=== PATIENT | female | born 1970 | race Caucasian/White ===

== ENCOUNTER 2018-04-16 14:28 | Outpatient (CLI) | payer OTHER ==
--- NOTE | 2018-04-16 15:33 | MRI ---
MRI CERVICAL SPINE: History: 48-year-old with history of cervical radiculopathy. M54.12. Technique: Multiplanar, multisequence noncontrast enhanced MR images cervical spine obtained. Comparison: 12-21-15 FINDINGS: Images demonstrate the spinal cord to be unremarkable with no evidence of cord masses or lesions. C1-2: Unremarkable. C2-3: Unremarkable. C3-4: There is a minimal central disc protrusion compressing the thecal sac, not significantly compre ssing the spinal cord. The neural foramen are patent. C4-5: No evidence of disc herniation or spinal stenosis or neural foraminal narrowing is seen. C5-6: Unremarkable. C6-7: Unremarkable. C7-T1: Unremarkable. IMPRESSION: Minimal C2-3 disc protrusion and C3-4 disc protrusions. No significant evidence of thecal sac alvarez maricel or neural foraminal narrowing is seen. POS: [facility]
== END 2018-04-16 14:29 | disposition home or self-care (01) ==
LOC: SCSMRI 14:28
PROVIDERS: ATTEND Specialist
DX: M50.11 Cervical disc disorder with radiculopathy, high cervical region (principal)
CPT/HCPCS: 72141

== ENCOUNTER 2020-05-14 14:53 | Observation (INO) | payer OTHER ==
[2020-05-14] MEDS ORDERED: Acetaminophen 325 MG TAB PO PRN (15:51)
[2020-05-14] MEDS ORDERED: Senokot S 8.6-50 MG TAB PO PRN (15:51)
[2020-05-14 15:54] LABS: #Basophils 0.2 thou/uL (0.0-0.2); #Eosinphils 0.2 thou/uL (0.0-0.7); #Lymphocytes 3.7 thou/uL (1.20-3.40); #Neutrophils 8.9 thou/uL (1.40-6.50); %Basophils 1.2 % (0.0-1.0); %Eosinophils 1.5 % (0.0-10.0); %Lymphocytes 26.8 % (21.0-51.0); %Monocytes 7.1 % (0.0-10.0); %Neutrophils 63.4 % (42.0-75.0); Hemoglobin 15.5 g/dL (12.0-16.0); Mean Corpuscular Hemoglobin 30.4 pg (27.0-31.0); Mean Corpuscular Volume 89.5 fL (78.0-98.0); Mean Platelet Volume 6.7 fL (7.4-10.4); Platelet Count 354 thou/uL (130-400); RBC Distribution Width 12.7 % (11.5-14.5); Red Blood Cell (RBC) Count 5.11 mill/uL (4.20-5.40)
[2020-05-14 16:16] LABS: ALT (SGPT) 27 U/L (8-55); AST (SGOT) 26 U/L (5-34); Alkaline Phosphatase 157 U/L (40-110); Anion Gap 16 mmol/L (10-20); BUN (Urea Nitrogen) 9 mg/dL (9.8-20.1); Bilirubin, Total 0.4 mg/dL (0.2-1.2); CK (CPK) 86 U/L (29-168); Calc. Creatinine Clearance 0 mL/min (70-130); Calcium 9.1 mg/dL (7.8-10.44); Carbon Dioxide 22 mmol/L (22-29); Chloride 104 mmol/L (98-107); Globulin 3.3 g/dL (2.4-3.5); Glucose 95 mg/dL (70-105); Protein, Total 7.3 g/dL (6.0-8.3); Sodium 138 mmol/L (136-145)
[2020-05-14 16:17] LABS: Acetaminophen Less than 6.0 mcg/mL (10.0-30.0); Alcohol Less than 10 mg/dL (Less than 10); Lipase 34 U/L (8-78); Salicylate Less than 8.0 mg/dL (15.0-30.0)
[2020-05-14 16:37] LABS: Troponin I 0.044 ng/mL (< 0.028)
--- NOTE | 2020-05-14 16:43 | PDOC.HHP ---
Hospitalist KENRICK Tunnel vision/elevated troponin History of Present Illness: 50F presents to the ED from [facility] after being evaluated there for sudden onset vision changes, numbness/tingling to right hand when sitting down to chart today. 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 She reports a history of migraine headaches which can include floaters in her right eye with her right side of her nose becoming numb. She reports an increase in headache frequency and states she has them every day... has a nasal spray and takes Motrin and they resolve typically. Her Brain CT and CTA in [place] were negative for acute processes. She reports all of her symptoms have resolved now and she feels generally better. She has new prescriptive lens within the last 2 months and believed her vision is not much better with them on. She is going to be admitted here for further evaluation. ED Course: WBC = 14 BUN/CR 9/0.83 Troponin 0.044 x2, otherwise unremarkable. Allergies/Adverse Reactions: Allergy/AdvReac Type Severity Reaction Status Date / Time No Known Drug Allergies Allergy Verified 02/16/16 12:45 Home Medications: Medication Instructions Recorded Confirmed Type Escitalopram Oxalate [Lexapro] 20 mg PO DAILY 02/16/16 02/16/16 History Esomeprazole Magnesium [NexIUM 40 mg PO DAILY 02/16/16 02/16/16 History Oral Suspension] HYDROcodone Bit/APAP 10/325 [[place] 2 tab PO Q6HR PRN 02/16/16 02/16/16 History 10/325] OXcarbazepine [Trileptal] 300 mg PO BID 02/16/16 02/16/16 History Ondansetron HCl [Zofran] 8 mg PO TID PRN 02/16/16 02/16/16 History Prednisone [predniSONE 10 mg 10 mg PO ASDIR 02/16/16 02/16/16 History Dosepak] clonazePAM 0.5 mg PO BID PRN 02/16/16 02/16/16 History traMADol HCl [Tramadol HCl] 100 mg PO TID PRN 02/16/16 02/16/16 History Past History: PMHx: PSHx: FHx: Social: Hospitalist KENRICK ROS Eyes: reports: vision change ENT: denies: ear pain, ear discharge, nose pain, nose discharge, nose congestion, mouth pain, mouth swelling, throat pain, throat swelling, other Respiratory: denies: cough, dry, shortness of breath, hemoptysis, SOB with excertion, pleuritic pain, sputum, wheezing, other Cardiovascular: denies: chest pain, palpitations, orthopnea, paroxysmal noc. dyspnea, edema, light headedness, other Gastrointestinal: denies: nausea, vomiting, abdominal pain, diarrhea, constipation, melena, hematochezia, other Genitourinary: denies: dysuria, frequency, incontinence, hematuria, retention, other Musculoskeletal: denies: neck pain, shoulder pain, arm pain, back pain, hand pain, leg pain, foot pain, other Skin: denies: rash, lesions, tona, bruising, other Neurological: reports: numbness (right arm/hand; resolved) Hospitalist Exam General Appearance: NAD, awake alert Eye: PERRL, anicteric sclera ENT: normocephalic atraumatic, moist mucosa Neck: supple, no lymphadenopathy Heart: RRR, normal peripheral pulses Respiratory: CTAB, normal chest expansion Gastrointestinal: soft, non-tender, normal bowel sounds Extremities: no edema Skin: normal turgor Neurological: cranial nerve grossly intact Musculoskeletal: normal tone, normal strength Psychiatric: normal affect, A&O x 3 Hospitalist Results Result Diagrams: 05/14/20 15:43 05/14/20 15:43 Lab results: Laboratory Last Values WBC 14.0 thou/uL (4.8-10.8) H 05/14/20 15:43 RBC 5.11 mill/uL (4.20-5.40) 05/14/20 15:43 Hgb 15.5 g/dL (12.0-16.0) 05/14/20 15:43 Hct 45.7 % (36.0-47.0) 05/14/20 15:43 MCV 89.5 fL (78.0-98.0) 05/14/20 15:43 MCH 30.4 pg (27.0-31.0) 05/14/20 15:43 MCHC 34.0 g/dL (32.0-36.0) 05/14/20 15:43 RDW 12.7 % (11.5-14.5) 05/14/20 15:43 Plt Count 354 thou/uL (130-400) 05/14/20 15:43 MPV 6.7 fL (7.4-10.4) L 05/14/20 15:43 Neutrophils % 63.4 % (42.0-75.0) 05/14/20 15:43 Lymphocytes % 26.8 % (21.0-51.0) 05/14/20 15:43 Monocytes % 7.1 % (0.0-10.0) 05/14/20 15:43 Eosinophils % 1.5 % (0.0-10.0) 05/14/20 15:43 Basophils % 1.2 % (0.0-1.0) H 05/14/20 15:43 Neutrophils # 8.9 thou/uL (1.40-6.50) H 05/14/20 15:43 Lymphocytes # 3.7 thou/uL (1.20-3.40) H 05/14/20 15:43 Monocytes # 1.0 thou/uL (0.11-0.59) H 05/14/20 15:43 Eosinophils # 0.2 thou/uL (0.0-0.7) 05/14/20 15:43 Basophils # 0.2 thou/uL (0.0-0.2) 05/14/20 15:43 Sodium 138 mmol/L (136-145) 05/14/20 15:43 Potassium 4.0 mmol/L (3.5-5.1) 05/14/20 15:43 Chloride 104 mmol/L (98-107) 05/14/20 15:43 Carbon Dioxide 22 mmol/L (22-29) 05/14/20 15:43 Anion Gap 16 mmol/L (10-20) 05/14/20 15:43 BUN 9 mg/dL (9.8-20.1) L 05/14/20 15:43 Creatinine 0.83 mg/dL (0.6-1.1) 05/14/20 15:43 Estimated GFR (MDRD) 72 05/14/20 15:43 Glucose 95 mg/dL (70-105) 05/14/20 15:43 Calcium 9.1 mg/dL (7.8-10.44) 05/14/20 15:43 Total Bilirubin 0.4 mg/dL (0.2-1.2) 05/14/20 15:43 AST 26 U/L (5-34) 05/14/20 15:43 ALT 27 U/L (8-55) 05/14/20 15:43 Alkaline Phosphatase 157 U/L (40-110) H 05/14/20 15:43 Creatine Kinase 86 U/L (29-168) 05/14/20 15:43 Serum Total Protein 7.3 g/dL (6.0-8.3) 05/14/20 15:43 Albumin 4.0 g/dL (3.5-5.0) 05/14/20 15:43 Globulin 3.3 g/dL (2.4-3.5) 05/14/20 15:43 Albumin/Globulin Ratio 1.2 g/dL (1.2-2.2) 05/14/20 15:43 Lipase 34 U/L (8-78) 05/14/20 15:43 Salicylates Less than 8.0 mg/dL (15.0-30.0) L 05/14/20 15:43 Acetaminophen Less than 6.0 mcg/mL (10.0-30.0) L 05/14/20 15:43 Plasma Alcohol Less than 10 mg/dL (Less than 10) 05/14/20 15:43 CT scan - head Status: report reviewed by me (No acute findings) Hospitalist H&P A/P (1) Migraine Code(s): G43.909 - MIGRAINE, UNSP, NOT INTRACTABLE, WITHOUT STATUS MIGRAINOSUS Status: Acute (2) Hypertension Code(s): I10 - ESSENTIAL (PRIMARY) HYPERTENSION Status: Chronic (3) Cervicalgia Code(s): M54.2 - CERVICALGIA Status: Chronic (4) Change in vision Code(s): H53.9 - UNSPECIFIED VISUAL DISTURBANCE Status: Acute (5) Leukocytosis Code(s): D72.829 - ELEVATED WHITE BLOOD CELL COUNT, UNSPECIFIED Status: Acute (6) Elevated troponin Code(s): R77.8 - OTHER SPECIFIED ABNORMALITIES OF PLASMA PROTEINS Status: Acute Plan: #TIA vs Migraine Echo and MRI brain w/o contrast Fasting lipids; TSH pending PT/OT/Speech/Neurology consult Aspirin and Statin ordered #Elevated troponins Will trend #Leukocytosis Will check a UA; CXR was clear Will recheck CBC in AM #HTN engine monitor Restart home med once reconciled DVT and PUD prevention started Discussed case/plan with Dr. Hallman
[2020-05-14 17:27] LABS: Bilirubin Negative (Negative); Blood, Urine Negative (Negative); Clarity Clear (Clear); Glucose, Urine (Dipstick) Normal (Negative); Ketone, Urine Negative (Negative); Leukocyte Negative Leu/uL (Negative); Nitrite Negative (Negative); Protein, Urine (Dipstick) Negative (Neg-Trace); Specific Gravity, Urine 1.047 (1.002-1.036); Urobilinogen Normal mg/dL (Less than 2)
[2020-05-14 17:35] LABS: Amphetamine Not Detected (NotDetected); Barbiturates Screen Not Detected (NotDetected); Benzodiazepine Screen Not Detected (NotDetected); Cocaine Metabolite Screen Not Detected (NotDetected); Medtox Control Line Valid? VALID (VALID); Medtox Reader # READER 4; Methadone Not Detected (NotDetected); Methamphetamine Not Detected (NotDetected); Opiate Screen Not Detected (NotDetected); Oxycodone Screen Not Detected (NotDetected); Phencyclidine (PCP) Not Detected (NotDetected); THC/Cannabinoid Screen Not Detected (NotDetected); Tricyclic Screen Detected (NotDetected)
[2020-05-14 18:21] VITALS: BMI 31.1
[2020-05-14 19:58] LABS: Troponin I 0.037 ng/mL (< 0.028)
[2020-05-14] MEDS ORDERED: Atorvastatin Calcium 40 MG TAB PO SCH (21:00)
[2020-05-14] MEDS: Famotidine 20 MG TAB PO SCH (21:30)
[2020-05-15 00:08] VITALS: TEMP 98
[2020-05-15 01:19] LABS: SARS-CoV-2 PCR by NAA Not Detected (NotDetected)
[2020-05-15] MEDS ORDERED: Acetaminophen 325 MG TAB ONE (09:00)
[2020-05-15] MEDS ORDERED: Enoxaparin Sodium 40 MG/0.4 ML SYRINGE SC SCH (09:00)
[2020-05-15] MEDS ORDERED: Aspirin 325 mg Enteric Coated Tablet PO SCH (09:00)
[2020-05-15 13:11] VITALS: BP 144/67
--- NOTE | 2020-05-15 14:03 | PDOC.DS.DS ---
Provider Date of Admission: 05/14/20 15:48 Date of Discharge: 05/15/20 Admitting Provider: Sonal Hallman MD Consultations: None Primary Care Physician: Nam Francis MD Course Hospital Course: 50-year-old female with past medical history of hypertension and migraine presenting for vision change and arm tingling. Patient seen at [facility] and had CT as well as CTA performed which were negative for acute hemorrhagic or ischemic stroke. Patient admitted to observation at [facility] for TIA rule out. Echocardiogram has been performed, but due to inclement weather MRI felt nonemergent at this time. Patient's ABCD 2 score was low risk, and she has no family history of heart attack or stroke. 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 At this time, patient is not high risk therefore will take aspirin 325 mg daily as well as atorvastatin, and continue her home blood pressure medications. No need for dual antiplatelet therapy at this time. Patient is completely asymptomatic at this time as the symptoms stopped at the [facility] prior to her transfer to this facility. Patient states she will have close follow-up with her primary care physician for further lab work and imaging if necessary. Patient's vital signs are stable and she has no signs or symptoms of infection. Leukocytosis was secondary to stress reaction and has resolved. Indeterminate troponin elevation remained stable therefore it appears as chronic condition. EKG without signs of ST elevation or acute ischemia. Patient does not wish to wait for echocardiogram, and will follow up these results outpatient for any further treatment. Pertinent Studies: Echocardiogram: Ordered for evaluation of patent foramen ovale. Pending read by hooker operator. Patient does not wish to wait, and would like to follow-up as outpatient to discuss results. She will follow up with her primary care physician and have them request this testing. Lab Results: Laboratory Tests 05/14/20 05/14/20 05/14/20 15:43 15:43 15:43 WBC 14.0 H RBC 5.11 Hgb 15.5 Hct 45.7 MCV 89.5 MCH 30.4 MCHC 34.0 RDW 12.7 Plt Count 354 MPV 6.7 L Neutrophils % 63.4 Lymphocytes % 26.8 Monocytes % 7.1 Eosinophils % 1.5 Basophils % 1.2 H Neutrophils # 8.9 H Lymphocytes # 3.7 H Monocytes # 1.0 H Eosinophils # 0.2 Basophils # 0.2 Sodium 138 Potassium 4.0 Chloride 104 Carbon Dioxide 22 Anion Gap 16 BUN 9 L Creatinine 0.83 Estimated GFR (MDRD) 72 Glucose 95 Calcium 9.1 Total Bilirubin 0.4 AST 26 ALT 27 Alkaline Phosphatase 157 H Creatine Kinase 86 Troponin I Serum Total Protein 7.3 Albumin 4.0 Globulin 3.3 Albumin/Globulin Ratio 1.2 Lipase 34 TSH 3rd Generation Urine Color Urine Clarity Urine pH Ur Specific [place] Urine Protein Urine Glucose (UA) Urine Ketones Urine Blood Urine Nitrite Urine Bilirubin Prot Sulfosalicylic Acd Urine Urobilinogen Ur Leukocyte Esterase Urine RBC Urine WBC Ur Squamous Epith Cells Ur Transition Epith Cell Ur Renal Epithelial Cell Calcium Carbonate Cryst Calcium Phosphate Cryst Calcium Oxalate Crystal Leucine Crystals Cystine Crystals Uric Acid Crystals Triple Phos Crystals Tyrosine Crystals Other Crystals Amorphous Crystals Urine Bacteria Cellular Casts Epithelial Casts Fatty Casts Hyaline Casts Granular Casts Waxy Casts Broad Casts RBC Casts WBC Casts Other Casts Urine Mucus U Trichomonas Species Ur Yeast w Hyphae Urine Yeast (Budding) Urine Sperm Ur Oval Fat Bodies Micro UA Comment Salicylates Less than 8.0 L Urine Opiates Screen Ur Oxycodone Screen Urine Methadone Screen Ur Propoxyphene Screen Acetaminophen Less than 6.0 L Ur Barbiturates Screen Ur Tricyclics Screen Ur Phencyclidine Scrn Ur Amphetamines Screen U Methamphetamines Scrn U Benzodiazepines Scrn U Cocaine Metab Screen U Cannabinoids Screen Drug Screen Comment Plasma Alcohol Less than 10 SARS CoV-2 Rapid Source SARS-CoV-2 RNA (FAIZAN) 05/14/20 05/14/20 05/14/20 15:43 15:43 17:07 WBC RBC Hgb Hct MCV MCH MCHC RDW Plt Count MPV Neutrophils % Lymphocytes % Monocytes % Eosinophils % Basophils % Neutrophils # Lymphocytes # Monocytes # Eosinophils # Basophils # Sodium Potassium Chloride Carbon Dioxide Anion Gap BUN Creatinine Estimated GFR (MDRD) Glucose Calcium Total Bilirubin AST ALT Alkaline Phosphatase Creatine Kinase Troponin I 0.044 H Serum Total Protein Albumin Globulin Albumin/Globulin Ratio Lipase TSH 3rd Generation 2.7696 Urine Color Light-Yellow Urine Clarity Clear Urine pH 5.0 Ur Specific [place] 1.047 H Urine Protein Negative Urine Glucose (UA) Normal Urine Ketones Negative Urine Blood Negative Urine Nitrite Negative Urine Bilirubin Negative Prot Sulfosalicylic Acd CANAL BOAT CAPTAIN Urine Urobilinogen Normal Ur Leukocyte Esterase Negative Urine RBC CANAL BOAT CAPTAIN Urine WBC CANAL BOAT CAPTAIN Ur Squamous Epith Cells CANAL BOAT CAPTAIN Ur Transition Epith Cell CANAL BOAT CAPTAIN Ur Renal Epithelial Cell CANAL BOAT CAPTAIN Calcium Carbonate Cryst CANAL BOAT CAPTAIN Calcium Phosphate Cryst CANAL BOAT CAPTAIN Calcium Oxalate Crystal CANAL BOAT CAPTAIN Leucine Crystals CANAL BOAT CAPTAIN Cystine Crystals CANAL BOAT CAPTAIN Uric Acid Crystals CANAL BOAT CAPTAIN Triple Phos Crystals CANAL BOAT CAPTAIN Tyrosine Crystals CANAL BOAT CAPTAIN Other Crystals CANAL BOAT CAPTAIN Amorphous Crystals CANAL BOAT CAPTAIN Urine Bacteria CANAL BOAT CAPTAIN Cellular Casts CANAL BOAT CAPTAIN Epithelial Casts CANAL BOAT CAPTAIN Fatty Casts CANAL BOAT CAPTAIN Hyaline Casts CANAL BOAT CAPTAIN Granular Casts CANAL BOAT CAPTAIN Waxy Casts CANAL BOAT CAPTAIN Broad Casts CANAL BOAT CAPTAIN RBC Casts CANAL BOAT CAPTAIN WBC Casts CANAL BOAT CAPTAIN Other Casts CANAL BOAT CAPTAIN Urine Mucus CANAL BOAT CAPTAIN U Trichomonas Species CANAL BOAT CAPTAIN Ur Yeast w Hyphae CANAL BOAT CAPTAIN Urine Yeast (Budding) CANAL BOAT CAPTAIN Urine Sperm CANAL BOAT CAPTAIN Ur Oval Fat Bodies CANAL BOAT CAPTAIN Micro UA Comment CANAL BOAT CAPTAIN Salicylates Urine Opiates Screen Ur Oxycodone Screen Urine Methadone Screen Ur Propoxyphene Screen Acetaminophen Ur Barbiturates Screen Ur Tricyclics Screen Ur Phencyclidine Scrn Ur Amphetamines Screen U Methamphetamines Scrn U Benzodiazepines Scrn U Cocaine Metab Screen U Cannabinoids Screen Drug Screen Comment Plasma Alcohol SARS CoV-2 Rapid Source SARS-CoV-2 RNA (FAIZAN) 05/14/20 05/14/20 05/14/20 17:07 19:24 21:40 WBC RBC Hgb Hct MCV MCH MCHC RDW Plt Count MPV Neutrophils % Lymphocytes % Monocytes % Eosinophils % Basophils % Neutrophils # Lymphocytes # Monocytes # Eosinophils # Basophils # Sodium Potassium Chloride Carbon Dioxide Anion Gap BUN Creatinine Estimated GFR (MDRD) Glucose Calcium Total Bilirubin AST ALT Alkaline Phosphatase Creatine Kinase Troponin I 0.037 H Serum Total Protein Albumin Globulin Albumin/Globulin Ratio Lipase TSH 3rd Generation Urine Color Urine Clarity Urine pH Ur Specific [place] Urine Protein Urine Glucose (UA) Urine Ketones Urine Blood Urine Nitrite Urine Bilirubin Prot Sulfosalicylic Acd Urine Urobilinogen Ur Leukocyte Esterase Urine RBC Urine WBC Ur Squamous Epith Cells Ur Transition Epith Cell Ur Renal Epithelial Cell Calcium Carbonate Cryst Calcium Phosphate Cryst Calcium Oxalate Crystal Leucine Crystals Cystine Crystals Uric Acid Crystals Triple Phos Crystals Tyrosine Crystals Other Crystals Amorphous Crystals Urine Bacteria Cellular Casts Epithelial Casts Fatty Casts Hyaline Casts Granular Casts Waxy Casts Broad Casts RBC Casts WBC Casts Other Casts Urine Mucus U Trichomonas Species Ur Yeast w Hyphae Urine Yeast (Budding) Urine Sperm Ur Oval Fat Bodies Micro UA Comment Salicylates Urine Opiates Screen Not Detected Ur Oxycodone Screen Not Detected Urine Methadone Screen Not Detected Ur Propoxyphene Screen Not Detected Acetaminophen Ur Barbiturates Screen Not Detected Ur Tricyclics Screen Detected H Ur Phencyclidine Scrn Not Detected Ur Amphetamines Screen Not Detected U Methamphetamines Scrn Not Detected U Benzodiazepines Scrn Not Detected U Cocaine Metab Screen Not Detected U Cannabinoids Screen Not Detected Drug Screen Comment Plasma Alcohol SARS CoV-2 Rapid Source Nasopharyngeal Swab SARS-CoV-2 RNA (FAIZAN) Not Detected 05/15/20 05:00 WBC 8.9 RBC 4.90 Hgb 15.1 Hct 44.8 MCV 91.5 MCH 30.8 MCHC 33.7 RDW 12.7 Plt Count 312 MPV 7.1 L Neutrophils % 52.3 Lymphocytes % 33.0 Monocytes % 10.4 H Eosinophils % 3.2 Basophils % 1.2 H Neutrophils # 4.6 Lymphocytes # 2.9 Monocytes # 0.9 H Eosinophils # 0.3 Basophils # 0.1 Sodium Potassium Chloride Carbon Dioxide Anion Gap BUN Creatinine Estimated GFR (MDRD) Glucose Calcium Total Bilirubin AST ALT Alkaline Phosphatase Creatine Kinase Troponin I Serum Total Protein Albumin Globulin Albumin/Globulin Ratio Lipase TSH 3rd Generation Urine Color Urine Clarity Urine pH Ur Specific [place] Urine Protein Urine Glucose (UA) Urine Ketones Urine Blood Urine Nitrite Urine Bilirubin Prot Sulfosalicylic Acd Urine Urobilinogen Ur Leukocyte Esterase Urine RBC Urine WBC Ur Squamous Epith Cells Ur Transition Epith Cell Ur Renal Epithelial Cell Calcium Carbonate Cryst Calcium Phosphate Cryst Calcium Oxalate Crystal Leucine Crystals Cystine Crystals Uric Acid Crystals Triple Phos Crystals Tyrosine Crystals Other Crystals Amorphous Crystals Urine Bacteria Cellular Casts Epithelial Casts Fatty Casts Hyaline Casts Granular Casts Waxy Casts Broad Casts RBC Casts WBC Casts Other Casts Urine Mucus U Trichomonas Species Ur Yeast w Hyphae Urine Yeast (Budding) Urine Sperm Ur Oval Fat Bodies Micro UA Comment Salicylates Urine Opiates Screen Ur Oxycodone Screen Urine Methadone Screen Ur Propoxyphene Screen Acetaminophen Ur Barbiturates Screen Ur Tricyclics Screen Ur Phencyclidine Scrn Ur Amphetamines Screen U Methamphetamines Scrn U Benzodiazepines Scrn U Cocaine Metab Screen U Cannabinoids Screen Drug Screen Comment Plasma Alcohol SARS CoV-2 Rapid Source SARS-CoV-2 RNA (FAIZAN) Vitals: Vital Signs (12 hours) Pulse Pulse BP BP 05/15/20 11:06 97 108 H 144/67 H 138/77 Weight Weight 170 lb Physical Exam: The patient was seen and examined on the day of discharge. General Appearance: NAD, awake alert Eye: PERRL ENT: normocephalic atraumatic Neck: no JVD Respiratory: CTAB, no wheezes, no tachypnea Cardiovascular: RRR, no murmur, no gallops Gastrointestinal: soft, non-tender, non-distended Extremities: no edema Skin: no lesions, no rashes Neurological: cranial nerve grossly intact, normal sensation to touch, no weakness, no focal deficits, no new deficit Musculoskeletal: normal tone, normal strength, no muscle wasting PSYCH: normal affect, normal behavior Problem (1) Transient ischemic attack Code(s): G45.9 - TRANSIENT CEREBRAL ISCHEMIC ATTACK, UNSPECIFIED Status: Acute (2) Elevated troponin Code(s): R77.8 - OTHER SPECIFIED ABNORMALITIES OF PLASMA PROTEINS Status: Acute (3) Leukocytosis Code(s): D72.829 - ELEVATED WHITE BLOOD CELL COUNT, UNSPECIFIED Status: Acute Qualifiers: Leukocytosis type: lymphocytosis Qualified Code(s): D72.820 - Lymphocytosis (symptomatic) (4) Migraine Code(s): G43.909 - MIGRAINE, UNSP, NOT INTRACTABLE, WITHOUT STATUS MIGRAINOSUS Status: Chronic Qualifiers: Migraine type: with aura Status migrainosus presence: without status migrainosus Intractability: not intractable Qualified Code(s): G43.109 - Migraine with aura, not intractable, without status migrainosus (5) Hypertension Code(s): I10 - ESSENTIAL (PRIMARY) HYPERTENSION Status: Chronic Qualifiers: Hypertension type: essential hypertension Qualified Code(s): I10 - Essential (primary) hypertension Time Spent in discharge related activities (mins): 40 Plan Prescriptions: Atorvastatin Calcium [Lipitor] 40 mg PO HS 30 Days #30 tab Home Medications: Medication Instructions Recorded Confirmed Type clonazePAM 1 mg PO HS 02/15/05/14/20 History Amitriptyline HCl [Elavil] 50 mg PO HS 05/14/20 05/14/20 History Amlodipine [Norvasc] 5 mg PO DAILY 05/14/20 05/14/20 History Famotidine [Pepcid] 20 mg PO BID 05/14/20 05/14/20 History Olmesartan/Hydrochlorothiazide 1 each PO DAILY 05/14/20 05/14/20 History [Olmesartan-Hctz 20-12.5 mg Tab] Aspirin [Ecotrin Regular Strength] 325 mg PO DAILY tab 05/15/20 Rx Atorvastatin Calcium [Lipitor] 40 mg PO HS 30 Days #30 tab 05/15/20 Rx Allergies: No Known Drug Allergies Allergy (Verified 02/16/16 12:45) Activity:: Activity as Tolerated Nourishment:: Heart Healthy Diet Therapies:: Not Applicable Equipment/Supplies:: Not Applicable IV Therapy:: Not Applicable Referrals: Nam Francis MD [Primary Care Provider] - Disposition: HOME Quality CORE MEASURES:: Stroke/TIA Did you prescribe antithrombotic therapy?: Yes Did you prescribe anticoagulant for A Fib/Flutter?: No Specify reason for no DC anticoagulant: Treatment not indicated Did you prescribe a statin medication?: Yes
[2020-05-15 14:07] LABS: #Basophils 0.1 thou/uL (0.0-0.2); #Eosinphils 0.3 thou/uL (0.0-0.7); #Lymphocytes 2.9 thou/uL (1.20-3.40); #Monocytes 0.9 thou/uL (0.11-0.59); #Neutrophils 4.6 thou/uL (1.40-6.50); %Basophils 1.2 % (0.0-1.0); %Eosinophils 3.2 % (0.0-10.0); %Monocytes 10.4 % (0.0-10.0); %Neutrophils 52.3 % (42.0-75.0); Hemoglobin 15.1 g/dL (12.0-16.0); Mean Corpuscular HGB CONC 33.7 g/dL (32.0-36.0); Mean Corpuscular Hemoglobin 30.8 pg (27.0-31.0); Mean Corpuscular Volume 91.5 fL (78.0-98.0); Mean Platelet Volume 7.1 fL (7.4-10.4); Platelet Count 312 thou/uL (130-400); RBC Distribution Width 12.7 % (11.5-14.5); White Blood Cell (WBC) Count 8.9 thou/uL (4.8-10.8)
[2020-05-15 14:27] LABS: ALT (SGPT) 23 U/L (8-55); AST (SGOT) 21 U/L (5-34); Albumin 3.6 g/dL (3.5-5.0); Alkaline Phosphatase 134 U/L (40-110); Anion Gap 15 mmol/L (10-20); BUN (Urea Nitrogen) 15 mg/dL (9.8-20.1); Bilirubin, Total 0.5 mg/dL (0.2-1.2); Calc. Creatinine Clearance 104 mL/min (70-130); Calcium 9.3 mg/dL (7.8-10.44); Carbon Dioxide 24 mmol/L (22-29); Chloride 101 mmol/L (98-107); Globulin 2.9 g/dL (2.4-3.5); Glucose 106 mg/dL (70-105); Potassium 3.7 mmol/L (3.5-5.1); Protein, Total 6.5 g/dL (6.0-8.3); Sodium 136 mmol/L (136-145)
[2020-05-15 14:57] LABS: Cardiac Risk 5.3 (Less than 4.5); Cholesterol 212 mg/dl (< 200 Desired); HDL Cholesterol 40 mg/dL (>60 Neg Risk); LDL Cholesterol, Calculated 136 mg/dL; Triglycerides 178 mg/dL (Less than 150)
[2020-05-15] MEDS: Famotidine 20 MG TAB PO SCH (15:03)
--- NOTE | 2020-05-15 15:23 | PDOC.BPN ---
- Brief Progress Note Encounter Date: 05/15/20 Encounter Time: 03:00 Attempted to see patient but patient was already discharged from the hospital.
== END 2020-05-15 14:53 | disposition home or self-care (01) ==
LOC: ERS 14:53 → 2SE 15:48
PROVIDERS: ADMIT Internal Medicine; ATTEND Emergency Medicine
DX: H53.8 Other visual disturbances (principal); R20.2 Paresthesia of skin; R77.8 Other specified abnormalities of plasma proteins; I10 Essential (primary) hypertension; D72.820 Lymphocytosis (symptomatic); G43.109 Migraine with aura, not intractable, without status migrainosus; F41.9 Anxiety disorder, unspecified; F32.9 Major depressive disorder, single episode, unspecified; Z79.899 Other long term (current) drug therapy; Z20.822 Contact with and (suspected) exposure to COVID-19
CPT/HCPCS: 36415; 80053; 80061; 80306; 80307; 81003; 83690; 84443; 85025; 87635; 93005; 93306; G0378; U0003; U0005

== ENCOUNTER 2020-06-05 11:48 | Outpatient (CLI) | payer OTHER ==
[~2020-06-05 11:48] MED LIST: Magnevist 469MG/ML 20 ML VIAL ONE
== END 2020-06-05 11:49 | disposition home or self-care (01) ==
LOC: BICMRI 11:48
PROVIDERS: ATTEND Family Medicine
DX: G45.9 Transient cerebral ischemic attack, unspecified (principal)
CPT/HCPCS: 70553; A9579